=== PATIENT | male | born 1975 | race Caucasian/White ===

== ENCOUNTER 2018-08-21 23:09 | Emergency (ER) | payer OTHER, SELFPAY ==
[2018-08-21 23:20] VITALS: BP 122/82; PULSE 66; RESP 20; TEMP 36.8; O2SAT 96; BMI 33.3
--- NOTE | 2018-08-21 23:23 | DI.RAD.S_ITS ---
PROCEDURE: XR CHEST 2V INDICATIONS: cough, SOB, fever x 1 week TECHNIQUE: 2 views of the chest were acquired. COMPARISON: None. FINDINGS: Surgical changes and devices: None. Lungs and pleura: Lungs are clear. No pleural effusions or pneumothorax. Mediastinum: Mediastinal contours are normal. Heart size is normal. Bones and chest wall: No suspicious bony abnormalities. Soft tissues appear unremarkable. IMPRESSION: No acute pulmonary process. The above findings are concordant with preliminary report. Dictated by: Noris Jones M.D. on 08/22/2018 at 9:44 Approved by: Noris Jones M.D. on 08/22/2018 at 9:45
[2018-08-21 23:33] VITALS: PULSE 57; O2SAT 99
[2018-08-21] MEDS: ALBUTEROL/IPRATROPIUM 3 ML AMPUL INH (23:33)
--- NOTE | 2018-08-22 00:22 | ED.URI ---
HPI - URI/Sore Throat General Chief Complaint: Upper Respiratory Symptoms Stated Complaint: coughing/fever/bloody phlegm Time Seen by Provider: 08/22/18 00:20 Source: patient Mode of arrival: ambulatory Limitations: no limitations History of Present Illness HPI Narrative: Patient is a 43-year-old male who presents with upper respiratory like symptoms ongoing for about 1 week. He has had body aches and chills the chest and head congestion. He initially thought he was getting better. However today he coughed up some blood which scared him. He has no sore throat no shortness of breath with exertion. He has no chest pain or tightness. He just complains of body aches and congestion. He was concerned about hemoptysis. It was just 1 time. He is not a smoker. He has no swelling in his legs no dyspnea with exertion. Was given albuterol by nursing for Wheezing. He feels like that helped some. MD Complaint: fever, cough and rhinorrhea Severity: mild Related Data Previous Rx's Medication Instructions Recorded clindamycin HCl 300 mg PO Q6H #28 cap 06/01/17 Allergies Allergy/AdvReac Type Severity Reaction Status Date / Time No Known Allergies Allergy Uncoded 08/20/17 12:50 Review of Systems Review of Systems ROS Unobtainable: All systems reviewed & are unremarkable except as noted in HPI and below Constitutional Reports body ache(s), Reports chills and Reports fatigue Cardiovascular Denies chest pain, Denies irregular heart rhythm, Denies lightheadedness, Denies palpitations and Denies orthopnea Respiratory Reports as per HPI, Reports change in phlegm color, Reports chest congestion and Reports hemoptysis (x1) Gastrointestinal Gastrointestinal: Denies abdominal pain, Denies change in bowel habits, Denies diarrhea, Denies nausea and Denies vomiting Genitourinary Denies hematuria, Denies flank pain, Denies urinary incontinence and Denies urinary urgency Musculoskeletal Denies back pain, Denies muscle weakness, Denies numbness and Denies tingling Integumentary/Breasts Denies pruritus, Denies erythema, Denies rash and Denies wounds Neurologic Denies numbness and Denies tingling Endocrine Reports fatigue and Denies palpitations [facility] Medical History Patient denies significant medical history (Acute) Social History Smoking Status: Never smoker Social History Smoking Status: Never smoker Exam Initial Vital Signs Initial Vital Signs: Vital Signs Temperature 98.2 F 08/21/18 23:20 Pulse Rate 66 08/21/18 23:20 Respiratory Rate 20 08/21/18 23:20 Blood Pressure 122/82 08/21/18 23:20 Pulse Oximetry 96 08/21/18 23:20 GENERAL: Well-appearing, well-nourished and in no acute distress. HEENT: Head atraumatic,EOMI, pupils reactive, face symmetric, moist mucous membranes PHARYNX: No erythema, no tonsillar exudate, no cervical lymphadenopathy CARDIOVASCULAR: Regular rate and rhythm without murmurs, rubs or gallops. RESPIRATORY: Breath sounds equal bilaterally, no wheezes rales or rhonchi. ABDOMEN: Soft, nontender. Normoactive bowel sounds all 4 quadrants. No guarding or rebound. EXTREMITIES: Normal range of motion, no clubbing or edema. Neurovascularly intact NEUROLOGICAL: Alert and oriented x4.Normal gait and speech. SKIN: Warm, dry, no laceration, no petechiae, no rashes or lesions. Course Orders Ordered: ED Orders 08/21/18 23:23 XR chest 2V Stat RT Consult Eval and Treat Now Discontinued Medications Albuterol (Ventolin Hfa Prepack) 1 box MISC SEEINSTR ONE Stop: 08/22/18 00:27 Last Admin: 08/22/18 00:34 Dose: 1 box Albuterol/Ipratropium (Duoneb) 3 ml INH NOW ONE Stop: 08/21/18 23:33 Last Admin: 08/21/18 23:33 Dose: 3 ml Vital Signs - 8 hr 08/21/18 23:20 08/21/18 23:33 08/22/18 00:38 Temperature 98.2 F Pulse Rate 66 57 L 76 Respiratory Rate 20 20 Blood Pressure 122/82 Pulse Oximetry 96 99 95 MDM - URI/Sore Throat Imaging Data Chest x-ray: Attestation: I personally reviewed and interpreted this imaging study as follows: My impression: No acute cardiopulmonary process MDM Narrative Medical decision making narrative: At this time patient does not appear septic or toxic. Afebrile asking when he can go home. Albuterol did seem to help I do not appreciate wheezing. However he will get a inhaler and spacer by respiratory. At this time patient does not require any further workup. Discharge Plan Departure Patient Disposition: Home Clinical Impression: Upper respiratory infection Qualifiers: URI type: unspecified viral URI Qualified Code(s): J06.9 - Acute upper respiratory infection, unspecified Discharge Date/Time: 08/22/18 00:37 Interventions: ED Discharge Assessment Last Done: 08/22/18 00:38 Instructions: DI for Viral Upper Respiratory Infection -- Adult Activity Restrictions/Additional Instructions: *You have been diagnosed with upper respiratory infection *What to do: At this time no antibiotics are indicated. This is likely a virus which will run its course. Pneumonia is not found on x-ray. *Continue to take medications as directed Albuterol inhaler 1-2 puffs every 4 hours if needed for coughing spells or chest tightness *Follow up with your primary care provider in 2-3 days *Return to ER if you should have coughing up couple's of blood, increased shortness of breath, fever, weakness or any new, worsening or concerning symptoms Prescriptions: No Action clindamycin HCl 300 MG capsule 300 mg PO Q6H Qty: 28 RF: 0 Referrals: [facility] [Provider Group]
[2018-08-22] MEDS: ALBUTEROL HFA PREPACK 1 BOX MISC (00:34)
--- NOTE | 2018-08-22 00:37 | PC.NURSE ---
Respiratory here, gave patient spacer training.
[2018-08-22 00:38] VITALS: PULSE 76; RESP 20; O2SAT 95
== END 2018-08-22 00:37 | disposition home or self-care (01) ==
PROVIDERS: Emergency Provider Emergency Medicine
DX: J06.9 Acute upper respiratory infection, unspecified (principal)
CPT/HCPCS: 71046; 94640; 99282; 99283

== ENCOUNTER 2019-05-21 00:27 | Emergency (ER) | payer OTHER, SELFPAY ==
--- NOTE | 2019-05-21 00:29 | ED_ITS ---
HPI - General Adult General Chief complaint: Upper Respiratory Symptoms Stated complaint: achey joints head pain coughing hurts fever Time Seen by Provider: 05/21/19 00:28 Source: patient Mode of arrival: Ambulatory Limitations: no limitations History of Present Illness HPI narrative: 44-year-old otherwise healthy male here for evaluation approximately 2 days of fever, body aches, joint aches, cough. Took some ib uprofen and NyQuil prior to arrival. No rashes. Related Data Previous Rx's Medication Instructions Recorded clindamycin HCl 300 mg PO Q6H #28 cap 06/01/17 Allergies Allergy/AdvReac Type Severity Reaction Status Date / Time No Known Drug Allergies Allergy Verified 05/21/19 00:35 Review of Systems Constitutional Constitutional: Reports fatigue, Reports fever(s) and Reports malaise Cardiovascular Cardiovascular: Denies chest pain and Reports dyspnea on exertion Respiratory Respiratory: Reports cough and Reports dyspnea on exertion Gastrointestinal Gastrointestinal: Denies abdominal pain and Denies nausea Musculoskeletal Musculoskeletal: Denies myalgias and Denies arthralgias Integumentary/Breasts Skin/Breast: Denies lesions and Denies rash Neurologic Neurologic: Denies behavioral changes Psychiatric Psychiatric: Denies behavioral changes Endocrine Endocrine: Reports fatigue Hematologic/Lymphatic Hematologic/Lymphatic: Denies easy bleeding and Denies easy bruising Patient History Medical History Patient denies significant medical history (Acute) Social History Smoking Status: Never smoker Smoking Status: Never smoker alcohol intake frequency: 0-2 drinks per day Substance Use Type: does not use Exam Initial Vital Signs Initial Vital Signs: Vital Signs Temperature 99.4 F 05/21/19 00:30 Pulse Rate 77 05/21/19 00:30 Respiratory Rate 15 05/21/19 00:30 Blood Pressure 130/84 05/21/19 00:30 Pulse Oximetry 96 05/21/19 00:30 Const General: cooperative and comfortable Limitations: mental status not altered HENMT Head: normal to inspection and normocephalic Ears: TM's normal bilaterally Throat: posterior oropharynx normal Resp Effort & Inspection: normal respiratory effort Auscultation: rhonchi Cardio Rate: regular rate Pulses: radial pulses present Skin Lesions: no lesions Rashes: no rashes Neuro General: alert and awake Cognition: normal cognition Speech: speech normal Extrem General: normal to inspection and capillary refill normal Psych Appearance: grossly normal and well kempt Course Orders Ordered: ED Orders 05/21/19 00:33 Influenza A & B (PCR) Stat 05/21/19 00:34 XR chest 1V Stat Vital Signs Vital signs: Vital Signs - 8 hr 05/21/19 00:30 Temperature 99.4 F Pulse Rate 77 Respiratory Rate 15 Blood Pressure 130/84 Pulse Oximetry 96 Medical Decision Making Lab Data Lab results reviewed: Yes I reviewed the patient's lab results. Labs: Lab Results 05/21/19 Range/Units 00:33 Influenza A (RT-PCR) Flu a positive H (NEGATIVE) Influenza B (RT-PCR) Flu b negative (NEGATIVE) Imaging Data Chest x-ray: Attestation: I personally reviewed and interpreted this imaging study as follows: My Impression: No pneumonia, no pneumothorax MDM Narrative Medical decision making narrative: Nontoxic appearing. Is flu A positive. Has had symptoms for less than 48 hours. I did discuss with him Tamiflu. I did offer him this medication but after discussion he opted to just continue with fluids and Tylenol and ibuprofen. He was given return precautions and follow-up instructions. He expressed understanding and agreement plan. Discharge Plan Departure Patient Disposition: Home Clinical Impression: Influenza Instructions: DI for Influenza -- Adult Activity Restrictions/Additional Instructions: Continue with the Tylenol and/or ibuprofen for any fevers and body aches. Expect your symptoms to last for approximately 1 week. Be sure to increase your fluid intake. Return to the emergency department for any new or worsening symptoms Prescriptions: No Action clindamycin HCl 300 MG capsule 300 mg PO Q6H Qty: 28 RF: 0
[2019-05-21 00:30] VITALS: BP 130/84; PULSE 77; RESP 15; TEMP 37.4; O2SAT 96; BMI 30.4
--- NOTE | 2019-05-21 00:34 | DI.RAD.S_ITS ---
PROCEDURE: XR CHEST 1V INDICATIONS: fever, cough eval for Pneumonia TECHNIQUE: One view of the chest was acquired. COMPARISON: [facility], CR, XR CHEST 2V, 08/21/2018, 23:39. FINDINGS: Surgical changes and devices: Median sternotomy wires. Lungs and pleura: Lungs are clear. No pleural effusions or pneumothorax. Mediastinum: Mediastinal contours appear normal. Heart size is normal. Bones and chest wall: No suspicious bony lesions. Overlying soft tissues appear unremarkable. IMPRESSION: No acute cardiopulmonary disease process. Dictated by: Negra Wall MD, PhD on 05/21/2019 at 8:50 Approved by: Negra Wall MD, PhD on 05/21/2019 at 8:50
[2019-05-21 01:02] LABS: Influenza A - CEPHEID Flu A POSITIVE (NEGATIVE); Influenza B - CEPHEID Flu B NEGATIVE (NEGATIVE)
== END 2019-05-21 01:18 | disposition home or self-care (01) ==
PROVIDERS: Emergency Provider Emergency Medicine
DX: J11.1 Influenza due to unidentified influenza virus with other respiratory manifestations (principal)
CPT/HCPCS: 71045; 87502; 99283